=== PATIENT | female | born 1940 | race Caucasian/White ===

== ENCOUNTER 2016-11-26 11:21 | Emergency (ER) | payer MEDICARE, BC ==
[2016-11-26 09:48] LABS: BASOPHILS 1.3 %; BASOPHILS ABSOLUTE 0.09 10/3/uL (0.0-0.16); EOSINOPHILS 6.3 %; EOSINOPHILS ABSOLUTE 0.45 10/3/uL (0.0-0.53); IMMATURE GRANULOCYTES 0.3 %; IMMATURE GRANULOCYTES ABSOLUTE 0.02 10/3/uL (0.0-0.11); LYMPHOCYTES 31.4 %; LYMPHOCYTES ABSOLUTE 2.25 10/3/uL (0.67-4.30); MEAN CORPUSCULAR HEMOGLOB 30.7 pg (26.0-34.0); MEAN CORPUSCULAR VOLUME 92.9 fL (80-100); MEAN PLATELET VOLUME 9.6 fL (9.2-13.0); MONOCYTES 10.5 %; MONOCYTES ABSOLUTE 0.75 10/3/uL (0.21-1.20); NEUTROPHILS 50.2 %; NEUTROPHILS ABSOLUTE 3.61 10/3/uL (2.02-8.40); PLATELET COUNT 231 10/3/uL (150-400); RBC DISTRIBUTION WIDTH 14.9 % (12.0-16.0); WHITE BLOOD CELLS 7.2 10/3/uL (4.5-10.5)
[2016-11-26 09:49] LABS: HEMATOCRIT 33.9 % (36.0-48.0); HEMOGLOBIN 11.2 g/dL (12.0-16.0); MANUAL DIFF NO %; RED CELL COUNT 3.65 10/6/uL (4.0-5.6)
[2016-11-26 09:51] LABS: ASCORBIC ACID (UR NOT ORDER) NEG (NEG); BILIRUBIN, URINE NEGATIVE (NEG); ER URINALYSIS TAT 0 Hrs 07 Mins; KETONE, URINE NEGATIVE (NEG); LEUKOCYTE ESTERASE(NOT OR NEG (NEG); WBC (NOT ORDERED) (RFLEX) 3 (0-5)
[2016-11-26 10:12] LABS: NITRITE (URINE) NEG (NEG)
[~2016-11-26 11:21] MED LIST: ADVAIR100 INH; ALPHAGAN P0.1 % OPH; ARANESP SC; ASA5GR PO; ASAB PO; ATV.5 PO; ATV1; BEN25 PO; BENADRYL 50 MG50 MG PO; CIP2 PO; COMBIVENT INH; COMBIVENT RESPIM4 GM INH; COMBIVENT RESPIM4 GM PO; COZ50 PO; COZAAR100 MG PO; CRANBERRY 1680 MG; CYANO1000T PO; DSS PO; FERROUS SULF325 M1 PO; FLAG500TAB PO; FOLIC PO; GLUCPH PO; GLUCPH8 PO; IRON325 MG PO; L20 PO; LEVAQUIN750 MG PO; LEVOTHROID50 MCG PO; LEVOTHYROXIN25 MCG PO; LEVOTHYROXIN50 MCG PO; LEVOTHYROXIN75 MCG PO; MACRODANTIN 10100 MG PO; MAGONATE PO; MEDROL16B PO; MICARDIS40 PO; MIRALAXPKT PO; MTX2.5 PO; MULTIPLE VIT PO; NASONEX NAS; NITROQUICK0.4 MG SL; NITROSTAT0.4 MG SL; NORV5 PO; NTG150 SL; NYSTATPOW TOP; OCEAN NAS; P20 PO; PEP20 PO; PLAVIX PO; PREVALITE4 G1 PO; RESTASIS OPH; SODBICAR10 PO; SYN075 PO; TESS PO; TESSALON200 MG PO; THERA D; THERA D PO; TOPXL25 PO; TREXALL10 MG PO; TREXALL15 MG PO; URO-MAG140 MG PO; VITAMIN B-121000 MC1 SL; VITAMIN D31000 UNIT PO; X5 PO; Z300 PO; ZOCOR10 PO; ZYRTEC ALLGY10 MG PO; [UNRECOGNIZED DRUG - OTHER] PO
[2016-11-26 12:02] LABS: CALCIUM, SERUM 9.3 MG/DL (8.5-10.4); CHLORIDE, SERUM 107 MMOL/L (96-112); CO2 (CARBON DIOXIDE) 24 MMOL/L (24-34); CREATININE 1.22 MG/DL (0.55-1.02); GFR AFRICAN AMERICAN 50 ML/MIN (>=60); GFR NON AFRICAN AMERICAN 43 ML/MIN (>=60); POTASSIUM, SERUM 3.9 MMOL/L (3.5-5.3); SGOT(AST) 26 U/L (5-40); SGPT(ALT) 27 U/L (5-65); SODIUM, SERUM 141 MMOL/L (135-148); TOTAL BILIRUBIN 0.3 MG/DL (0-1.2)
[2016-11-26 12:03] LABS: A/G RATIO 0.8 (0.7-1.9); ALBUMIN 3.7 G/DL (3.5-5.0); ALKALINE PHOSPHATASE 85 U/L (45-117); BUN (BLOOD UREA NITROGEN) 26 MG/DL (6-23); GLOBULIN 4.4 G/DL (2.5-4.1); GLUCOSE, SERUM 166 MG/DL (60-99); TOTAL PROTEIN 8.1 G/DL (6.0-8.5)
[2017-04-15] MEDS ORDERED: TOPXL25 PO (02:25)
[2017-04-15] MEDS ORDERED: NORV5 PO (02:26)
[2017-04-15] MEDS ORDERED: L20 PO (02:27)
[2017-04-15] MEDS ORDERED: GLUCPH PO (02:27)
[2017-04-15] MEDS ORDERED: ZOCOR10 PO (02:28)
[2017-04-15] MEDS ORDERED: COMBIVENT RESPIM4 GM INH (02:29)
[2017-04-15] MEDS ORDERED: LEVOTHYROXIN75 MCG PO (02:29)
[2017-04-15] MEDS ORDERED: ADVAIR100 INH (02:30)
[2017-04-15] MEDS ORDERED: FOLIC PO (02:31)
[2017-04-15] MEDS ORDERED: MTX2.5 PO (02:31)
[2017-04-15] MEDS ORDERED: RESTASIS OPH (02:32)
[2017-04-15] MEDS ORDERED: ARANESP200 PO (02:33)
[2017-04-15] MEDS ORDERED: TESS PO (02:34)
[2017-04-15] MEDS ORDERED: NASONEX INH (02:34)
[2017-04-15] MEDS ORDERED: ZYRTEC ALLGY10 MG PO (02:35)
[2017-04-15] MEDS ORDERED: NITROSTAT0.4 MG SL (02:38)
[2017-04-15] MEDS ORDERED: THERA D PO (02:39)
[2017-04-15] MEDS ORDERED: VITAMIN B-121000 MC1 PO (02:39)
[2017-04-15] MEDS ORDERED: IRON PO (02:41)
[2017-04-15] MEDS ORDERED: ASAB PO (02:41)
[2017-04-15] MEDS ORDERED: DSS PO (02:42)
[2017-05-24] MEDS ORDERED: PROTONIX PO (10:39)
== END 2016-11-26 15:45 | disposition home or self-care (01) ==
LOC: ER 11:21
PROVIDERS: Hospitalist
DX: R10.9 Unspecified abdominal pain (principal); I12.9 Hypertensive chronic kidney disease with stage 1 through stage 4 chronic kidney disease, or unspecified chronic kidney disease; N18.9 Chronic kidney disease, unspecified; J44.9 Chronic obstructive pulmonary disease, unspecified; I25.2 Old myocardial infarction; Z98.61 Coronary angioplasty status; I50.9 Heart failure, unspecified; E11.9 Type 2 diabetes mellitus without complications; Z88.0 Allergy status to penicillin; Z88.2 Allergy status to sulfonamides; Z88.5 Allergy status to narcotic agent; Z91.013 Allergy to seafood; Z79.899 Other long term (current) drug therapy
CPT/HCPCS: 74176; 80053; 81001; 83690; 85025; 96374; 96375; 99285; J1980; J2405

== ENCOUNTER 2016-12-17 22:50 | Emergency (ER) | payer MEDICARE, BC ==
[2016-12-17 20:59] LABS: BASOPHILS 0.2 %; BASOPHILS ABSOLUTE 0.03 10/3/uL (0.0-0.16); EOSINOPHILS 2.9 %; EOSINOPHILS ABSOLUTE 0.43 10/3/uL (0.0-0.53); ER CBC TAT 0 Hrs 09 Mins; HEMOGLOBIN 9.8 g/dL (12.0-16.0); IMMATURE GRANULOCYTES 0.6 %; IMMATURE GRANULOCYTES ABSOLUTE 0.09 10/3/uL (0.0-0.11); LYMPHOCYTES 17.9 %; LYMPHOCYTES ABSOLUTE 2.69 10/3/uL (0.67-4.30); MANUAL DIFF NO %; MEAN CORPUS HGB CONC 31.6 g/dL (32.0-36.0); MEAN CORPUSCULAR HEMOGLOB 29.3 pg (26.0-34.0); MEAN CORPUSCULAR VOLUME 92.8 fL (80-100); MEAN PLATELET VOLUME 10.3 fL (9.2-13.0); MONOCYTES 13.3 %; MONOCYTES ABSOLUTE 2.01 10/3/uL (0.21-1.20); NEUTROPHILS 65.1 %; NEUTROPHILS ABSOLUTE 9.82 10/3/uL (2.02-8.40); PLATELET COUNT 311 10/3/uL (150-400); RBC DISTRIBUTION WIDTH 15.4 % (12.0-16.0); RED CELL COUNT 3.34 10/6/uL (4.0-5.6); WHITE BLOOD CELLS 15.1 10/3/uL (4.5-10.5)
[2016-12-17 21:16] LABS: A/G RATIO 0.8 (0.7-1.9); ALBUMIN 3.3 G/DL (3.5-5.0); ALKALINE PHOSPHATASE 82 U/L (45-117); BUN (BLOOD UREA NITROGEN) 27 MG/DL (6-23); CHLORIDE, SERUM 104 MMOL/L (96-112); CREATININE 1.26 MG/DL (0.55-1.02); GFR AFRICAN AMERICAN 48 ML/MIN (>=60); GFR NON AFRICAN AMERICAN 41 ML/MIN (>=60); GLOBULIN 4.1 G/DL (2.5-4.1); GLUCOSE, SERUM 149 MG/DL (60-99); POTASSIUM, SERUM 3.9 MMOL/L (3.5-5.3); SGOT(AST) 16 U/L (5-40); SGPT(ALT) 19 U/L (5-65); SODIUM, SERUM 142 MMOL/L (135-148); TOTAL BILIRUBIN 0.3 MG/DL (0-1.2); TOTAL PROTEIN 7.4 G/DL (6.0-8.5)
[2016-12-17 21:19] LABS: CO2 (CARBON DIOXIDE) 29 MMOL/L (24-34)
[2016-12-17 21:34] LABS: ASCORBIC ACID (UR NOT ORDER) NEG (NEG); BILIRUBIN, URINE NEGATIVE (NEG); ER URINALYSIS TAT 0 Hrs 08 Mins; KETONE, URINE NEGATIVE (NEG); LEUKOCYTE ESTERASE(NOT OR TRACE (NEG); NITRITE (URINE) NEG (NEG); WBC (NOT ORDERED) (RFLEX) 3 (0-5)
[2016-12-17 21:58] LABS: PROCALCITONIN <0.05 ng/mL (<0.5)
[2016-12-18 08:54] LABS: BE (BASE EXCESS) 0.6 MEQ/L (0 +/- 2.5); CARBOXYHEMOGLOBIN 1.1 % (0-3); DEVICE NC; HCO3 (ACTUAL BICARBONATE) 23.2 MEQ/L (23-27); INSTRUMENT SERIAL # 8087; METHEMOGLOBIN 0.1 % (0-3); O2 CONTENT 13.8 VOL% (18-24); PCO2 (CO2 TENSION) 30 MMHG (35-45); PO2 (O2 TENSION) 111 MMHG (79-93); SAMPLE Arterial; pH 7.51 (7.37-7.43)
[2017-04-15] MEDS ORDERED: TOPXL25 PO (02:25)
[2017-04-15] MEDS ORDERED: NORV5 PO (02:26)
[2017-04-15] MEDS ORDERED: L20 PO (02:27)
[2017-04-15] MEDS ORDERED: GLUCPH PO (02:27)
[2017-04-15] MEDS ORDERED: ZOCOR10 PO (02:28)
[2017-04-15] MEDS ORDERED: COMBIVENT RESPIM4 GM INH (02:29)
[2017-04-15] MEDS ORDERED: LEVOTHYROXIN75 MCG PO (02:29)
[2017-04-15] MEDS ORDERED: ADVAIR100 INH (02:30)
[2017-04-15] MEDS ORDERED: FOLIC PO (02:31)
[2017-04-15] MEDS ORDERED: MTX2.5 PO (02:31)
[2017-04-15] MEDS ORDERED: RESTASIS OPH (02:32)
[2017-04-15] MEDS ORDERED: ARANESP200 PO (02:33)
[2017-04-15] MEDS ORDERED: NASONEX INH (02:34)
[2017-04-15] MEDS ORDERED: TESS PO (02:34)
[2017-04-15] MEDS ORDERED: ZYRTEC ALLGY10 MG PO (02:35)
[2017-04-15] MEDS ORDERED: NITROSTAT0.4 MG SL (02:38)
[2017-04-15] MEDS ORDERED: VITAMIN B-121000 MC1 PO (02:39)
[2017-04-15] MEDS ORDERED: THERA D PO (02:39)
[2017-04-15] MEDS ORDERED: ASAB PO (02:41)
[2017-04-15] MEDS ORDERED: IRON PO (02:41)
[2017-04-15] MEDS ORDERED: DSS PO (02:42)
[2017-05-24] MEDS ORDERED: PROTONIX PO (10:39)
== END 2016-12-17 23:35 | disposition home or self-care (01) ==
LOC: ER 22:50
PROVIDERS: Nurse Practitioner Acute Care
DX: J44.1 Chronic obstructive pulmonary disease with (acute) exacerbation (principal); R50.9 Fever, unspecified; E11.9 Type 2 diabetes mellitus without complications; D64.9 Anemia, unspecified; F41.9 Anxiety disorder, unspecified; I13.0 Hypertensive heart and chronic kidney disease with heart failure and stage 1 through stage 4 chronic kidney disease, or unspecified chronic kidney disease; N18.9 Chronic kidney disease, unspecified; I50.9 Heart failure, unspecified; Z98.61 Coronary angioplasty status; I25.2 Old myocardial infarction; Z88.0 Allergy status to penicillin; Z88.5 Allergy status to narcotic agent; Z88.2 Allergy status to sulfonamides; Z91.013 Allergy to seafood; Z88.8 Allergy status to other drugs, medicaments and biological substances; Z79.899 Other long term (current) drug therapy; Z79.84 Long term (current) use of oral hypoglycemic drugs
CPT/HCPCS: 36600; 71020; 80053; 81001; 82805; 83605; 84145; 84484; 85025; 87040; 94640; 99285